=== PATIENT | male | born 1975 | race Caucasian/White ===

== ENCOUNTER 2016-04-21 15:58 | Emergency (ER) | payer MEDICAID ==
[2016-04-21] MEDS ORDERED: Sodium Chloride 0.9% 1,000 ML IV ONE (16:31)
[2016-04-21] MEDS ORDERED: Metoclopramide 5 mg/mL 2mL Vial IVP STA (16:31)
[2016-04-21] MEDS ORDERED: Morphine Sulfate 4 mg/mL 1mL Syr IVP STA (16:32)
--- NOTE | 2016-04-21 16:32 | ED Physician Chart ---
Chief Complaint/HPI - Patient Information Date Seen:: 04/21/16 Time Seen:: 16:26 Chief Complaint:: VILLALPANDO History of Present Illness:: pt was released from longterm after 3 weeks stay. he says not feeling well since release..he has generalized aches and pains and a cough prod of scant white sputum...when he coughs he gets severe stabbing pains in his parietal skull which are stabbing/brief and severe. no weakness/numbness/no sob. no leg pains or edema. pt was on a med for htn? while in longterm but was dcd w no meds...also he was on another med but doesnt know what or why. pt says he feels anxious like when he used to abuse meth. he had some chest discomfort at time of arrest and was seen by [facility] and ecg was ok..but he was not taken to hospital. he says his feeling of anxiety and chest tightness cont through his longterm stay. no recent fever. past hx of meth abuse but this was yrs ago per pt. ....pt later admits he snorted a line of some pill he had while in intermediate on tuesday. Allergies:: Allergies Allergy/AdvReac Type Severity Reaction Status Date / Time No Known Allergies Allergy Verified 04/21/16 16:11 Vitals:: Vital Signs - 8 hr 04/21/16 15:58 Temp 100.2 F HR 118 RR 18 BP 133/86 O2 Sat % 96 Historian:: Patient, Family Member Review of Systems - Review of Systems General/Constitutional: No fever, No chills, No weight loss, No weakness, No diaphoresis, No edema, No loss of appetite Skin: No skin lesions, No rash, No bruising Head: Headache, No light-headedness Eyes: No loss of vision, No pain, No diplopia ENT: No earache, No nasal drainage, No sore throat, No tinnitus Neck: No neck pain, No swelling, No thyromegaly, No stiffness, No mass noted Cardio Vascular: No chest pain, No palpitations, No PND, No orthopnea, No edema Pulmonary: No SOB, Cough, No sputum, No wheezing GI: No nausea, No vomiting, No diarrhea, No pain, No melena, No hematochezia, No constipation, No hematemesis G/U: No dysuria, No frequency, No hematuria Musculoskeletal: No bone or joint pain, No back pain, No muscle pain Endocrine: No polyuria, No polydipsia Psychiatric: No prior psych history, No depression, Anxiety, No suicidal ideation Hematopoietic: No bruising, No lymphadenopathy Allergic/Immuno: No urticaria, No angioedema Neurological: No syncope, No focal symptoms, No weakness, No paresthesia, No headache, No seizure, No dizziness, No confusion, No vertigo Past Medical History - Past Medical History Past Medical History: HTN, Other (hx of head trauma/skull fx 1986, htn..noncompliant) Social History: Smoker, No Alcohol, No Drug Use Medication: Reviewed Family Medical History - Family Member Mother Other Medical History: emphysema Physical Exam - Physical Examination General/Constitutional: Awake, Well-developed, well-nourished, Alert, No distress, GCS 15, Non-toxic appearing, Ambulatory Other Gen/Cons comments:: anxious, alert, nad no resp distress. nrml str/sens x 4 extr. cn 2-12 wnl. cv rrr no m abd s/nt/pos nabs. Head: Atraumatic Eyes: Lids, conjuctiva normal, PERRL, EOMI Skin: Nl inspection, No rash, No skin lesions, No ecchymosis, Well hydrated, No lymphadenopathy ENMT: External ears, nose nl, Nasal exam nl, Lips, teeth, gums nl Neck: Nontender, Full ROM w/o pain, No JVD, No nuchal rigidity, No bruit, No mass, No stridor Respiratory: Nl effort/Exclusion, Clear to Auscultation, No Wheeze/Rhonchi/Rales Cardio Vascular: RRR, No murmur, gallop, rubs, NL S1 S2 GI: No tenderness/rebounding/guarding, No organomegaly, No hernia, Normal BS's, Nondistended, No mass/bruits, No McBurney tenderness : No CVA tenderness Extremities: No tenderness or effusion, Full ROM, normal strength in all extremities, No edema, Normal digits & nails Neuro/Psych: Alert/oriented, DTR's symmetric, Normal sensory exam, Normal motor strength, Judgement/insight normal, Mood normal, Normal gait, No focal deficits Misc: normal gait, Normal back, No paraspinal tenderness Labs/Radiology/EKG Results - Lab Results Results: Laboratory Tests 04/21/16 04/21/16 04/21/16 16:44 16:44 16:44 WBC 7.3 RBC 4.58 Hgb 13.9 Hct 40.6 MCV 88.6 MCH 30.3 H MCHC Differential 34.2 RDW 12.8 Plt Count 270 MPV 7.0 Neutrophils % 76.3 Lymphocytes % 8.3 L Monocytes % 14.8 H Eosinophils % 0.1 Basophils % 0.5 Sodium 133 L Potassium 3.6 Chloride 97 L Carbon Dioxide 25.3 Anion Gap 14.3 BUN 21 Creatinine 1.4 H Est GFR ( Amer) > 60.0 Est GFR (Non-Af Amer) 59.1 BUN/Creatinine Ratio 15.0 Glucose 104 Whole Bld Lactic Acid Calcium 9.6 Total Bilirubin 0.5 AST 24 ALT 27 Alkaline Phosphatase 53 Creatine Kinase 256 H Troponin I < 0.01 L Total Protein 7.8 Albumin 4.8 Globulin 3.0 Albumin/Globulin Ratio 1.6 Urine Source Urine Color Urine Clarity Urine pH Ur Specific [place] Urine Protein Urine Glucose (UA) Urine Ketones Urine Blood Urine Nitrate Urine Bilirubin Urine Urobilinogen Ur Leukocyte Esterase Urine RBC Urine WBC Ur Epithelial Cells Urine Bacteria 04/21/16 04/21/16 16:44 17:10 WBC RBC Hgb Hct MCV MCH MCHC Differential RDW Plt Count MPV Neutrophils % Lymphocytes % Monocytes % Eosinophils % Basophils % Sodium Potassium Chloride Carbon Dioxide Anion Gap BUN Creatinine Est GFR ( Amer) Est GFR (Non-Af Amer) BUN/Creatinine Ratio Glucose Whole Bld Lactic Acid 0.86 Calcium Total Bilirubin AST ALT Alkaline Phosphatase Creatine Kinase Troponin I Total Protein Albumin Globulin Albumin/Globulin Ratio Urine Source CLEAN C Urine Color YELLOW Urine Clarity CLOUDY Urine pH 5.0 Ur Specific [place] 1.030 Urine Protein 30 H Urine Glucose (UA) NEGATIVE Urine Ketones NEGATIVE Urine Blood TRACE Urine Nitrate NEGATIVE Urine Bilirubin NEGATIVE Urine Urobilinogen 0.2 Ur Leukocyte Esterase SMALL H Urine RBC 0-2 H Urine WBC 25-50 H Ur Epithelial Cells NONE SEEN Urine Bacteria NONE SEEN - EKG Interpretations EKG Time:: 18:35 Rhythm: nsr-mild tach [place]: 63 Rate: 112 ED Septic Shock - . Is Septic Shock (SBP<90, OR Lactate>4 mmol\L) present?: No - <6hrs of presentation: Vital Signs: Vital Signs - 8 hr 04/21/16 15:58 Temp 100.2 F HR 118 RR 18 BP 133/86 O2 Sat % 96 Reassessment (Disposition) - Reassessment Reassessment:: resluts reviewed w pt. pt says he has no cp now. he still gets some VILLALPANDO w cough. pt has a strong family hx of cardiac dz...have offered him a cardiac admit since he has this strong family hx but overall the pain sounds atypical and is low on complaint list. pt refuses admission. his woman says she works as a rn and has abilty to get him to a cards dr tomorrow for rechk, uti result reviewed w pt. Reassessment Condition:: Improved - Diagnosis Diagnosis:: 1 uti 2 sinus congestion 3 feeling something is wrong since out of longterm - Aftercare/Follow up Instructions Aftercare/Follow-Up Instructions:: Counseled pt & family regarding lab results/ diagnosis & need follow up Medication Prescribed:: rx cipro and claritin d - Patient Disposition Discharge/Transfer:: Home Condition at Disposition:: Improved
[2016-04-21] MEDS ORDERED: Morphine Sulfate 4 mg/mL 1mL Syr ONE (16:58)
[2016-04-21] MEDS ORDERED: Metoclopramide 5 mg/mL 2mL Vial ONE (16:58)
[2016-04-21 17:09] LABS: % BASOPHILS 0.5 % (0.0-2.0); % EOSINOPHILS 0.1 % (0.0-5.0); % LYMPHOCYTES 8.3 % (20.0-50.0); % MONOCYTES 14.8 % (2.0-10.0); % NEUTROPHILS 76.3 % (40.0-80.0); HEMATOCRIT 40.6 % (39.0-49.0); HEMOGLOBIN 13.9 gm/dL (13.2-17.3); MEAN CELL VOLUME 88.6 fl (80-99); MEAN CORPUSCULAR HEMOGLOBIN 30.3 pg (26.0-30.0); MEAN CORPUSCULAR HGB CONC 34.2 pg (28.0-36.0); NEUTROPHILE ABSOLUTE 5.6 Th/cmm (1.8-8.0); PLATELET COUNT 270 Th/cmm (150-400); RED BLOOD COUNT 4.58 Mil/cmm (4.30-5.70); RED CELL DISTRIBUTION WIDTH 12.8 % (11.5-20.0); WHITE BLOOD COUNT 7.3 Th/cmm (4.8-10.8)
[2016-04-21 17:17] LABS: ALB/GLOB RATIO 1.6 (1.0-1.8); ALKALINE PHOSPHATASE 53 U/L (34-104); ANION GAP 14.3 (7.0-16.0); BILIRUBIN,TOTAL 0.5 mg/dL (0.3-1.0); BUN - UREA NITROGEN 21 mg/dL (7-25); CALCIUM SERUM 9.6 mg/dL (8.6-10.3); CARBON DIOXIDE 25.3 mEq/L (21.0-31.0); CHLORIDE 97 mEq/L (98-107); CREATININE - SERUM 1.4 mg/dL (0.7-1.3); GLUCOSE 104 mg/dL (70-105); POTASSIUM SERUM 3.6 mEq/L (3.5-5.1); SGOT 24 U/L (13-39); SGPT/ALT 27 U/L (7-52); SODIUM SERUM 133 mEq/L (136-145)
[2016-04-21 18:51] LABS: URINE BILIRUBIN NEGATIVE (NEGATIVE); URINE BLOOD TRACE (NEGATIVE); URINE COLOR YELLOW; URINE GLUCOSE (UA) NEGATIVE (NEGATIVE); URINE KETONE NEGATIVE (NEGATIVE); URINE PROTEIN 30 mg/dL (NEGATIVE)
[2016-04-21 18:52] LABS: URINE RBC 0-2 /hpf (0-5); URINE UROBILINOGEN 0.2 E.U./dL (0.2 - 1.0)
[2016-04-21 18:53] LABS: URINE BACTERIA NONE SEEN /hpf (NONE SEEN); URINE EPITHELIAL CELLS NONE SEEN /lpf (FEW); URINE WBC 25-50 /hpf (0-5)
--- NOTE | 2016-04-22 09:10 | Diagnostic Imaging Report ---
CHEST X-RAY: AP view INDICATION: Chest pain COMPARISON: None FINDINGS: There is no focal consolidation or pleural effusions The heart is normal in size. The osseous structures demonstrate no acute abnormalities. IMPRESSION: No focal acute pulmonary process.
--- NOTE | 2016-04-22 10:58 | Diagnostic Imaging Report ---
Head CT without intravenous contrast Indication: Severe headache Comparison: None Technique: Axial images were obtained from the vertex to the skull base without IV contrast. Coronal reconstructions were made. Total DLP: 615, CTDI32.9 FINDINGS: Images of the brain obtained without contrast demonstrate no acute hemorrhage. No mass lesions identified. The ventricles and basal cisterns are patent. The munguia-white matter differentiation is preserved. There is no mass effect or midline shift. No skull fractures identified. No soft tissue swelling. The paranasal sinuses are clear. IMPRESSION: No acute intracranial abnormality.
== END 2016-04-21 19:45 | disposition home or self-care (01) ==
LOC: ER 15:58
DX: N39.0 Urinary tract infection, site not specified (principal); R09.89 Other specified symptoms and signs involving the circulatory and respiratory systems; I10 Essential (primary) hypertension; F17.200 Nicotine dependence, unspecified, uncomplicated; F15.10 Other stimulant abuse, uncomplicated
CPT/HCPCS: 99285; 96374; 96375; 93005; 71010; 70450; 84484; 36415; 83605; 85025; 87086; 81001; 82550; 82553; 80053; 87040 ×2; J2765; J7030; Z7610